=== PATIENT | male | born 1975 | race African-American/Black ===

== ENCOUNTER 2017-09-24 18:10 | Emergency (ER) | payer OTHER ==
[~2017-09-24] VITALS: Ht 180.3 cm; Wt 75.0 kg
[2017-09-24 18:25] VITALS: BP 135/98; PULSE 98; RESP 16; RESP 20; TEMP 97.8; O2SAT 98
[2017-09-24] MEDS ORDERED: VIST25CA PO (18:55)
[2017-09-24] MEDS ORDERED: BUPR75TA PO (18:55)
[2017-09-24] MEDS ORDERED: MIRTA15 PO (18:55)
[2017-09-24] MEDS ORDERED: ABIL15TA3 PO (18:55)
--- NOTE | 2017-09-24 19:25 | PD ---
HPI Chief Complaint: Psychiatric Symptoms Time Seen by Provider: 18:58 Travel History International Travel<30 days: No Contact w/Intl Traveler<30days: No Traveled to known affect area: No History of Present Illness HPI Patient is a 42-year-old male presenting to the emergency department for psychiatric evaluation under Brown act. Patient made suicidal ideations. He reports that he would overdose on pills. He reports being tired of his family not listening to him. "If I were gone they would understand". He reports a history of depression and anxiety, he is currently on Vyvanse and buspirone which he reports compliance to. He also takes mirtazapine at night. He has no physical complaints at this time. He denies any insomnia or appetite disturbance. He does report a previous suicide attempt by overdose with sleeping pills. He denies any illicit drug use, alcohol use and he currently smokes electronic cigarettes. Symptom onset is unknown, symptom severity is moderate. Symptoms are exacerbated by family issues. Patient does not elaborate on what issues he has with his family. PFSH Past Medical History Bipolar Disorder: Yes Anxiety: Yes Depression: Yes Diminished Hearing: No Immunizations Current: Yes Past Surgical History Appendectomy: Yes Social History Alcohol Use: No Tobacco Use: No Substance Use: No Allergies-Medications (Allergen,Severity, Reaction): Coded Allergies: No Known Allergies (Unverified , 09/24/17) Reported Meds & Prescriptions Reported Meds & Active Scripts Active Reported Vistaril (Hydroxyzine Pamoate) 25 Mg Cap 25 Mg PO TID Mirtazapine 15 Mg Tab 15 Mg PO HS Bupropion HCl 75 Mg Tab 75 Mg PO DAILY Abilify (Aripiprazole) 15 Mg Tab 15 Mg PO DAILY Review of Systems Except as stated in HPI: all other systems reviewed are Neg Psychiatric: Positive: Depression, Suicidal Ideations Physical Exam Narrative GENERAL: Well-developed, well-nourished, alert male. Presenting in no acute distress. SKIN: Warm and dry. HEAD: Atraumatic. Normocephalic. EYES: Pupils equal and round. No scleral icterus. No injection or drainage. ENT: No nasal bleeding or discharge. Mucous membranes pink and moist. NECK: Trachea midline. No JVD. CARDIOVASCULAR: Regular rate and rhythm. RESPIRATORY: No accessory muscle use. Clear to auscultation. Breath sounds equal bilaterally. GASTROINTESTINAL: Abdomen soft, non-tender, nondistended. Hepatic and splenic margins not palpable. MUSCULOSKELETAL: Extremities without clubbing, cyanosis, or edema. No obvious deformities. NEUROLOGICAL: Awake and alert. No obvious cranial nerve deficits. Motor grossly within normal limits. Five out of 5 muscle strength in the arms and legs. Normal speech. PSYCHIATRIC: Appropriate mood and affect; insight and judgment normal. Data Data Last Documented VS Vital Signs Date Time Temp Pulse Resp B/P (MAP) Pulse Ox O2 Delivery O2 Flow Rate FiO2 09/24/17 18:25 97.8 98 20 135/98 (110) 98 Orders Orders Complete Blood Count With Diff (09/24/17 19:01) Comprehensive Metabolic Panel (09/24/17 19:01) Psych Screen (09/24/17 19:01) Diet Regular Basic (09/25/17 Breakfast) Drug Screen, Random Urine (09/24/17 19:01) Alcohol (Ethanol) (09/24/17 19:01) Labs Laboratory Tests Test 09/24/17 18:40 09/24/17 19:15 White Blood Count 5.1 TH/MM3 Red Blood Count 5.14 MIL/MM3 Hemoglobin 15.6 GM/DL Hematocrit 45.8 % Mean Corpuscular Volume 89.1 FL Mean Corpuscular Hemoglobin 30.4 PG Mean Corpuscular Hemoglobin Concent 34.1 % Red Cell Distribution Width 13.3 % Platelet Count 325 TH/MM3 Mean Platelet Volume 7.7 FL Neutrophils (%) (Auto) 42.9 % Lymphocytes (%) (Auto) 45.8 % Monocytes (%) (Auto) 8.0 % Eosinophils (%) (Auto) 2.3 % Basophils (%) (Auto) 1.0 % Neutrophils # (Auto) 2.2 TH/MM3 Lymphocytes # (Auto) 2.4 TH/MM3 Monocytes # (Auto) 0.4 TH/MM3 Eosinophils # (Auto) 0.1 TH/MM3 Basophils # (Auto) 0.1 TH/MM3 CBC Comment DIFF FINAL Differential Comment Blood Urea Nitrogen 9 MG/DL Creatinine 1.19 MG/DL Random Glucose 339 MG/DL Total Protein 8.4 GM/DL Albumin 4.0 GM/DL Calcium Level 9.8 MG/DL Alkaline Phosphatase 112 U/L Aspartate Amino Transf (AST/SGOT) 14 U/L Alanine Aminotransferase (ALT/SGPT) 19 U/L Total Bilirubin 0.3 MG/DL Sodium Level 135 MEQ/L Potassium Level 4.2 MEQ/L Chloride Level 99 MEQ/L Carbon Dioxide Level 29.7 MEQ/L Anion Gap 6 MEQ/L Estimat Glomerular Filtration Rate 81 ML/MIN Ethyl Alcohol Level LESS THAN 3 MG/DL MDM Medical Decision Making Medical Screen Exam Complete: Yes Emergency Medical Condition: Yes Interpretation(s) Laboratory Tests Test 09/24/17 18:40 09/24/17 19:15 White Blood Count 5.1 TH/MM3 Red Blood Count 5.14 MIL/MM3 Hemoglobin 15.6 GM/DL Hematocrit 45.8 % Mean Corpuscular Volume 89.1 FL Mean Corpuscular Hemoglobin 30.4 PG Mean Corpuscular Hemoglobin Concent 34.1 % Red Cell Distribution Width 13.3 % Platelet Count 325 TH/MM3 Mean Platelet Volume 7.7 FL Neutrophils (%) (Auto) 42.9 % Lymphocytes (%) (Auto) 45.8 % Monocytes (%) (Auto) 8.0 % Eosinophils (%) (Auto) 2.3 % Basophils (%) (Auto) 1.0 % Neutrophils # (Auto) 2.2 TH/MM3 Lymphocytes # (Auto) 2.4 TH/MM3 Monocytes # (Auto) 0.4 TH/MM3 Eosinophils # (Auto) 0.1 TH/MM3 Basophils # (Auto) 0.1 TH/MM3 CBC Comment DIFF FINAL Differential Comment Blood Urea Nitrogen 9 MG/DL Creatinine 1.19 MG/DL Random Glucose 339 MG/DL Total Protein 8.4 GM/DL Albumin 4.0 GM/DL Calcium Level 9.8 MG/DL Alkaline Phosphatase 112 U/L Aspartate Amino Transf (AST/SGOT) 14 U/L Alanine Aminotransferase (ALT/SGPT) 19 U/L Total Bilirubin 0.3 MG/DL Sodium Level 135 MEQ/L Potassium Level 4.2 MEQ/L Chloride Level 99 MEQ/L Carbon Dioxide Level 29.7 MEQ/L Anion Gap 6 MEQ/L Estimat Glomerular Filtration Rate 81 ML/MIN Ethyl Alcohol Level LESS THAN 3 MG/DL Vital Signs Date Time Temp Pulse Resp B/P (MAP) Pulse Ox O2 Delivery O2 Flow Rate FiO2 09/24/17 18:25 97.8 98 20 135/98 (110) 98 Differential Diagnosis Depression versus mood disorder versus substance abuse versus suicidal ideations versus psychosis versus metabolic abnormality versus other Narrative Course Patient is a 39-year-old male presenting to emergency department under Brown act for psychiatric evaluation. Patient's vital signs are stable, he is well- appearing. Mental health screening discussed with the patient. Psychiatric screen ordered. Labs reviewed, no acute findings identified. Patient is medically cleared for psychiatric evaluation. Diagnosis Primary Impression: Medical clearance for psychiatric admission Condition: Stable Shayy Carver Sep 24, 2017 19:25
[2017-09-24 20:11] LABS: AUTOMATED NEUTROPHIL # 2.2 TH/MM3 (1.8-7.7); BASOPHIL # 0.1 TH/MM3 (0-0.2); EOSINOPHIL # 0.1 TH/MM3 (0-0.4); EOSINOPHIL % 2.3 % (0.0-4.0); HEMATOCRIT 45.8 % (39.0-51.0); HEMOGLOBIN 15.6 GM/DL (13.0-17.0); LYMPH % 45.8 % (9.0-44.0); LYMPHOCYTE # 2.4 TH/MM3 (1.0-4.8); MEAN CELL VOLUME 89.1 FL (80.0-100.0); MEAN CORPUSCULAR HEMOGLOBIN 30.4 PG (27.0-34.0); MEAN CORPUSCULAR HGB CONC 34.1 % (32.0-36.0); MEAN PLATELET VOLUME 7.7 FL (7.0-11.0); MONOCYTE # 0.4 TH/MM3 (0-0.9); NEUT % 42.9 % (16.0-70.0); PLATELET COUNT 325 TH/MM3 (150-450); RED BLOOD COUNT 5.14 MIL/MM3 (4.50-5.90); RED CELL DISTRIBUTION WIDTH 13.3 % (11.6-17.2); WHITE BLOOD COUNT 5.1 TH/MM3 (4.0-11.0)
[2017-09-24 20:25] LABS: ALT (GPT) 19 U/L (12-78); AST (GOT) 14 U/L (15-37); BICARBONATE 29.7 MEQ/L (21.0-32.0); BLOOD UREA NITROGEN 9 MG/DL (7-18); CALCIUM 9.8 MG/DL (8.5-10.1); CHLORIDE 99 MEQ/L (98-107); CREATININE 1.19 MG/DL (0.60-1.30); GLOMERULAR FILTRATION RATE 81 ML/MIN (>89); GLUCOSE,RANDOM 339 MG/DL (74-106); SODIUM (NA) 135 MEQ/L (136-145)
[2017-09-24 20:28] LABS: ALKALINE PHOSPHATASE 112 U/L (45-117); TOTAL BILIRUBIN ADULT 0.3 MG/DL (0.2-1.0); TOTAL PROTEIN 8.4 GM/DL (6.4-8.2)
[2017-09-25 02:44] VITALS: BP 124/88; PULSE 86; RESP 17; TEMP 97.8; O2SAT 100
[2017-09-25 06:51] VITALS: BP 131/81; PULSE 85; RESP 18; O2SAT 98
[2017-09-25 10:43] VITALS: BP 120/81; PULSE 91; RESP 16; TEMP 98.4; O2SAT 100
--- NOTE | 2017-09-25 11:36 | PD ---
Physical Exam Date Seen by Provider: Sep 25, 2017 Time Seen by Provider: 11:32 Narrative 42-year-old male previously Brown acted and medically cleared for psychiatric evaluation. Psychiatric nursing noted that the patient's blood sugar last evening was 336. It was rechecked today and found to be 280. Patient previously is not to be known to be diabetic. Patient is awaiting psychiatric evaluation and possible transfer to [facility]. Patient will be started on metformin 500 mg twice daily. Data Data Last Documented VS Orders Orders Complete Blood Count With Diff (09/24/17 19:01) Comprehensive Metabolic Panel (09/24/17 19:01) Psych Screen (09/24/17 19:01) Drug Screen, Random Urine (09/24/17 19:01) Alcohol (Ethanol) (09/24/17 19:01) Diet Diabetic (09/25/17 Breakfast) Metformin (Glucophage) (09/25/17 11:45) Labs Laboratory Tests Test 09/24/17 18:40 09/24/17 19:15 Urine Opiates Screen NEG Urine Barbiturates Screen NEG Urine Amphetamines Screen NEG Urine Benzodiazepines Screen NEG Urine Cocaine Screen NEG Urine Cannabinoids Screen NEG White Blood Count 5.1 TH/MM3 Red Blood Count 5.14 MIL/MM3 Hemoglobin 15.6 GM/DL Hematocrit 45.8 % Mean Corpuscular Volume 89.1 FL Mean Corpuscular Hemoglobin 30.4 PG Mean Corpuscular Hemoglobin Concent 34.1 % Red Cell Distribution Width 13.3 % Platelet Count 325 TH/MM3 Mean Platelet Volume 7.7 FL Neutrophils (%) (Auto) 42.9 % Lymphocytes (%) (Auto) 45.8 % Monocytes (%) (Auto) 8.0 % Eosinophils (%) (Auto) 2.3 % Basophils (%) (Auto) 1.0 % Neutrophils # (Auto) 2.2 TH/MM3 Lymphocytes # (Auto) 2.4 TH/MM3 Monocytes # (Auto) 0.4 TH/MM3 Eosinophils # (Auto) 0.1 TH/MM3 Basophils # (Auto) 0.1 TH/MM3 CBC Comment DIFF FINAL Differential Comment Blood Urea Nitrogen 9 MG/DL Creatinine 1.19 MG/DL Random Glucose 339 MG/DL Total Protein 8.4 GM/DL Albumin 4.0 GM/DL Calcium Level 9.8 MG/DL Alkaline Phosphatase 112 U/L Aspartate Amino Transf (AST/SGOT) 14 U/L Alanine Aminotransferase (ALT/SGPT) 19 U/L Total Bilirubin 0.3 MG/DL Sodium Level 135 MEQ/L Potassium Level 4.2 MEQ/L Chloride Level 99 MEQ/L Carbon Dioxide Level 29.7 MEQ/L Anion Gap 6 MEQ/L Estimat Glomerular Filtration Rate 81 ML/MIN Ethyl Alcohol Level LESS THAN 3 MG/DL MDM Medical Record Reviewed: Yes Supervised Visit with MARGE: Yes Differential Diagnosis 42-year-old male previously Brown acted and medically cleared for psychiatric evaluation. Psychiatric nursing noted that the patient's blood sugar last evening was 336. It was rechecked today and found to be 280. Patient previously is not to be known to be diabetic. Patient is awaiting psychiatric evaluation and possible transfer to [facility]. Patient will be started on metformin 500 mg twice daily. Diagnosis Primary Impression: Medical clearance for psychiatric admission Additional Impression: Hyperglycemia due to type 2 diabetes mellitus Qualified Codes: E11.65 - Type 2 diabetes mellitus with hyperglycemia Referrals: [facility] Patient Instructions: Diabetic Hyperglycemia (ED), General Instructions, Metformin (By mouth) Scripts Metformin (Metformin) 500 Mg Tab 500 MG PO BIDPC for Blood Sugar Management for 5 Days, #10 TAB 0 Refills Prov: Mao Stroud MD 09/25/17 Condition: Stable Ryan Villatoro Sep 25, 2017 11:36
[2017-09-25] MEDS: metFORMIN HCL 500 MG TAB PO SCH (11:45)
[2017-09-25] MEDS ORDERED: METF500T PO ×2 (14:23→14:24)
== END 2017-09-25 16:13 ==
LOC: NEDAMB 18:10 → NEPJ 09-25 16:13
DX: E11.65 Type 2 diabetes mellitus with hyperglycemia (principal); R45.851 Suicidal ideations; F31.9 Bipolar disorder, unspecified; F41.9 Anxiety disorder, unspecified; Z79.899 Other long term (current) drug therapy
CPT/HCPCS: 80053; 80307; 85025; 99284